=== PATIENT | female | born 1990 | race Caucasian/White ===

== ENCOUNTER 2017-12-09 21:21 | Emergency (ER) | END 2017-12-09 23:55 | disposition home or self-care (01) ==

== ENCOUNTER 2019-02-11 20:56 | Emergency (ER) | payer SELFPAY ==
[~2019-02-11] VITALS: Wt 68.3 kg
[~2019-02-11 20:56] MED LIST: ACET500C5 PO; CETI10CA PO; Claritin; FLUT9.9S NASAL; GUAI473L22 PO; IBUP-1542 PO; ONDA4TAB14 PO; OSEL75CA23 PO; PRED20TA PO; SENN-120 PO; TRAM50TA2 PO
[2019-02-11 21:00] VITALS: Wt 68.3 kg
[2019-02-11] MEDS ORDERED: SODIUM CHLORIDE 0.9% 1L BAG IV* STA (21:19)
[2019-02-11] MEDS ORDERED: KETOROLAC 15 MG INJ IV STA (21:46)
[2019-02-11] MEDS ORDERED: ACETAMINOPHEN 325 MG TAB PO ONE (22:00)
[2019-02-12] MEDS ORDERED: AMOX500C2 PO
--- NOTE | 2019-02-12 00:31 | ERD ---
ER Documentation Chief Complaint Chief Complaint dx'd w bronchitis x3d; worse despite meds: amox, tussin, ibupr, zyrtec. HPI This is a 28-year-old female who is presenting with 3 days of waxing and waning fever, chills, productive cough of clear sputum, chest and nasal congestion with rhinorrhea and feeling generally unwell. The patient was evaluated previously and given prescriptions for amoxicillin, Tessalon, ibuprofen and Zyrtec. Despite treatment, the patient's symptoms persisted, which is what prompted her to come to the emergency department today. The patient has had no headache or vision changes. The patient does not endorse neck or back pain. The patient denies lightheadedness or dizziness. The patient has had no chest pain but she does report mild shortness of breath. The patient denies abdominal pain. The patient denies changes to bowel movements or urination. The patient has had no focal deficits. The patient has had no weakness or numbness or tingling to the face or extremities. ROS All systems reviewed and are negative except as per history of present illness. Medications Home Meds Active Scripts Fluticasone Propionate (Flonase Allergy Relief) 9.9 Ml [place].susp, 1 SPRAY NASAL BID, #1 BOTTLE TO EACH NOSTRIL Prov:APRIL HARP PA-C 10/15/18 Ibuprofen* (Motrin*) 600 Mg Tab, 600 MG PO Q6H PRN for PAIN AND OR ELEVATED TEMP, #30 TAB Prov:EUSEBIO KUHN NP 12/09/17 Cetirizine Hcl* (Zyrtec*) 10 Mg Capsule, 10 MG PO DAILY, #30 TAB.CHEW Prov:EUSEBIO UKHN NP 12/09/17 Guaifenesin-Codeine Phosphate* (Guaifenesin* AC Cough Syrup) 473 Ml Liquid, 10 ML PO Q4H PRN for COUGH, #60 ML Prov:EUSEBIO KUHN NP 12/09/17 Reported Medications Amoxicillin* (Amoxicillin*) 500 Mg Cap, 500 MG PO Q8, #30 CAP 02/12/19 Discontinued Reported Medications [Claritin] No Conflict Check 02/08/16 Discontinued Scripts Prednisone* (Prednisone*) 20 Mg Tab, 60 MG PO DAILY for 5 Days, TAB Prov:APRIL HARP PA-C 10/15/18 Ondansetron (Ondansetron Odt) 4 Mg Tab.rapdis, 4 MG PO Q6H PRN for NAUSEA AND/OR VOMITING, #20 TAB Prov:EUSEBIO KUHN NP 12/09/17 Acetaminophen* (Tylophen*) 500 Mg Capsule, 1 CAP PO Q6H PRN for PAIN AND OR ELEVATED TEMP, #20 CAP Prov:EUSEBIO KUHN [employer] WORK[employer] 12/09/17 Oseltamivir Phosphate* (Tamiflu*) 75 Mg Capsule, 75 MG PO BID for 5 Days, CAP Prov:EUSEBIO KUHN [employer] WORK[employer] 12/09/17 Sennosides* (Senna Lax*) 8.6 Mg Tablet, 1 TAB PO BID PRN for CONSTIPATION for 7 Days, TAB Prov:SHANE RACHEL MD 02/08/16 Tramadol HCl (Tramadol HCl) 50 Mg Tablet, 50 MG PO Q6H PRN for PAIN, #25 TAB Prov:SHANE RACHEL MD 02/08/16 Allergies Allergies: Coded Allergies: No Known Allergy (Unverified , 02/11/19) PMhx/Soc History of Surgery: Yes (appendectomy) Anesthesia Reaction: No Hx Neurological Disorder: No Hx Cardiac Disorders: No Hx Psychiatric Problems: No Hx Miscellaneous Medical Probl: Yes (high triglycerides) Hx Alcohol Use: Yes (occasionally) Hx Substance Use: No Hx Tobacco Use: No Smoking Status: Never smoker FmHx Family History: No diabetes Physical Exam Vitals Vital Signs Date Temp Pulse Resp B/P (MAP) Pulse Ox O2 O2 Flow FiO2 Time Delivery Rate 02/11/19 101.8 110 24 118/82 97 Room Air 23:00 (94) 02/11/19 98.1 22:34 02/11/19 126 39 149/99 98 Room Air 22:27 (116) 02/11/19 102.1 133 22 159/101 96 21:00 (120) Physical Exam Const: No acute distress Head: Atraumatic Eyes: Normal Conjunctiva ENT: Normal External Ears and Mouth. Nasal congestion and rhinorrhea evident. Neck: Full range of motion. No meningismus. Resp: Clear to auscultation bilaterally Cardio: Regular rhythm, tachycardia, no murmurs Abd: Soft, non tender, non distended. Normal bowel sounds Skin: No petechiae or rashes Back: No midline or flank tenderness Ext: No cyanosis, or edema Neur: Awake and alert Psych: Normal Mood and Affect Result Diagram: 02/11/19212302/11/192123 Results 24 hrs Laboratory Tests Test 02/11/19 21:23 02/11/19 21:24 02/11/19 22:11 02/11/19 22:16 POC Venous 1.6 mmol/L Lactate White Blood Count 7.0 10^3/ul Red Blood Count 4.78 10^6/ul Hemoglobin 13.5 g/dl Hematocrit 40.9 % Mean Corpuscular 85.6 fl Volume Mean Corpuscular 28.2 pg Hemoglobin Mean Corpuscular 33.0 g/dl Hemoglobin Concen t Red Cell 12.4 % Distribution Width Platelet Count 204 10^3/UL Mean Platelet 11.8 fl Volume Immature 0.400 % Granulocytes % Neutrophils % 77.2 % Lymphocytes % 12.8 % Monocytes % 8.2 % Eosinophils % 1.0 % Basophils % 0.4 % Nucleated Red 0.0 /100WBC Blood Cells % Immature 0.030 10^3/ul Granulocytes # Neutrophils # 5.4 10^3/ul Lymphocytes # 0.9 10^3/ul Monocytes # 0.6 10^3/ul Eosinophils # 0.1 10^3/ul Basophils # 0.0 10^3/ul Nucleated Red 0.0 10^3/ul Blood Cells # Prothrombin Time 12.9 Sec Prothrombin Time 1.0 Ratio INR International 0.96 Normalized Ratio Activated 33.8 Sec Partial Thrombopl ast Time Sodium Level 140 mmol/L Potassium Level 3.5 mmol/L Chloride Level 103 mmol/L Carbon Dioxide 24 mmol/L Level Anion Gap 13 Blood Urea 7 mg/dl Nitrogen Creatinine 0.69 mg/dl Est Glomerular > 60 mL/min Filtrat Rate mL/min Glucose Level 144 mg/dl Calcium Level 9.1 mg/dl Total Bilirubin 1.0 mg/dl Direct Bilirubin 0.00 mg/dl Indirect 1.0 mg/dl Bilirubin Aspartate Amino 23 IU/L Transf (AST/SGOT) Alanine 18 IU/L Aminotransferase (ALT/SGPT) Alkaline 70 IU/L Phosphatase Troponin I < 0.012 ng/ml Total Protein 8.6 g/dl Albumin 4.6 g/dl Globulin 4.00 g/dl Albumin/Globulin 1.15 Ratio Urine Color HELENA Urine Clarity CLOUDY Urine pH 5.0 Urine Specific 1.027 Otter Urine Ketones NEGATIVE mg/dL Urine Nitrite NEGATIVE mg/dL Urine Bilirubin NEGATIVE mg/dL Urine 2+ mg/dL Urobilinogen Urine Leukocyte TRACE Penny/ul Esterase Urine Microscopic 1 /HPF RBC Urine Microscopic 7 /HPF WBC Urine Squamous MODERATE /HPF Epithelial Cells Urine Bacteria FEW /HPF Urine Mucus MANY /HPF Urine Hemoglobin NEGATIVE mg/dL Urine Glucose NEGATIVE mg/dL Urine Total 1+ mg/dl Protein POC Beta HCG, NEGATIVE Qualitative Test 02/11/19 23:26 Lactic Acid Level 0.9 mmol/L Current Medications Medications Dose Sig/Zachariah Start Time Status Last (Trade) Ordered Route PRN Stop Time Admin Dose Reason Admin Sodium 2,050 ml BOLUS OVER 2 02/11/19 DC 02/11/19 Chloride HOURS STAT 21:19 21:27 (NS) IV* 02/11/19 21:21 Ketorolac 15 mg ONCE STAT 02/11/19 DC 02/11/19 Tromethamine IV 21:46 22:18 (Toradol) 02/11/19 21:48 650 mg ONCE ONCE 02/11/19 DC 02/11/19 Acetaminophen PO 22:00 22:10 (Tylenol 02/11/19 22:01 Tab) Procedures/MDM MDM The patient's presentation warrants further investigation. Previous medical records, if available, were reviewed. LABS The patient's laboratory testing was obtained and reviewed. No emergent treatment was required unless described below. CBC: No E/o systemic infection or severe anemia or thrombocytopenia Chemistry: No E/o severe acidosis or alkalosis or renal failure or diabetic ketoacidosis PT/INR: No E/o significant coagulopathy Lactate: No E/o severe sepsis Troponin: No E/o acute ischemia Urine: Equivocal for infection without clinical evidence concerning for this etiology. No hematuria Tox: No E/o alcohol abuse. No E/o illicit drug use. No E/o salicylate or acetaminophen use. EKG EKG read by me: Rate/Rhythm: Sinus tachycardia at 126 bpm Intervals: Normal [place]: Normal Impression: No evidence of acute ischemia. Sinus tachycardia IMAGING Imaging and Radiology interpretation reviewed. CXR FINDINGS: The heart is not enlarged. Mediastinum is not widened. No hilar masses seen. Lungs are clear of any infiltrates. There is no effusion or pneumothorax. The osseous structures appear normal. IMPRESSION: No evidence for active cardiopulmonary disease. Electronically viewed and signed by .Izaiah Odell MD, on 02/11/2019 22:26 TREATMENT/DISPOSITION The patient's symptoms are most consistent with an upper respiratory infection. The patient has been sick for over 3 days. We are out of the flu season, but I am concerned about a viral syndrome. The patient will require symptomatic treatment. The patient is on amoxicillin already, and she may continue to take this, though I do have higher suspicion for a viral illness over a bacterial illness. Given the patient's fever and tachycardia, a sepsis work-up was performed. The patient does not have any evidence of endorgan damage. The patient has no lactic acidosis or leukocytosis. I have low suspicion for sepsis at this time. The patient's urinalysis is equivocal for infection. In discussion with the enedelia caceres, she denies any urinary symptoms. It is not a clean-catch specimen with squamous epithelium evident. I do not suspect a UTI and I do not feel the patient requires antibiotic treatment for this. The patient was treated with IV fluids, Tylenol and Toradol. DISCHARGE Upon reevaluation of the patient, symptoms have improved. No emergent diagnoses were identified. At this time, I feel that the patient stable for discharge. The patient was instructed to follow-up with a primary care physician in 1-3 days. The patient will be given strict precautions with which to return to the emergency department. Prescriptions: Ibuprofen, Tessalon Perles The patient's blood pressure was elevated at greater than 120/80 while in the emergency department. The patient was otherwise stable with no evidence of hypertensive urgency or emergency. The patient does not require admission for blood pressure control. I have discussed with the patient the risks of hypertension. I have instructed the patient to return to the ER for any new or worsening symptoms including chest pain, shortness of breath, headache, blurred vision, confusion, nausea, vomiting or LOC. I have advised the patient to follow up with the primary care physician for outpatient monitoring and treatment for hypertension in 1-3 days. Disclaimer: Inadvertent spelling and grammatical errors are likely due to EHR/dictation software use and do not reflect on the overall quality of patient care. Note that the electronic time recorded on this note does not necessarily reflect the actual time of the patient encounter. Departure Diagnosis: Primary Impression: Upper respiratory infection URI type: unspecified URI Qualified Codes: J06.9 - Acute upper respiratory infection, unspecified Additional Impressions: Nasal congestion Cough Fever Fever type: unspecified Qualified Codes: R50.9 - Fever, unspecified Tachycardia Condition: Stable Patient Instructions: Preventing Common Respiratory Infections, Cough, Chronic, Uncertain Cause, (Adult), Fever Control (Adult) Additional Instructions: Thank you for for coming to [facility] for your care today. Please ask your nurse or provider if you have questions about your care today and do not leave until all your questions have been answered. Please use any medications given as directed and follow-up with your doctor (or the doctor you were referred to) in the next 1-3 days. If you do not have a primary care doctor you may follow up at the [facility] or [facility] (listed below). You may also use motrin and tylenol as needed for fever and/or pain unless instructed otherwise by your provider or nurse. Indications for more urgent follow-up have been discussed, but you may return to the Emergency Department at ANY time for any worrisome or worsening symptoms. If you have abdominal pain, please know that no test or exam you received is perfect and you should follow up within 8 hours for continued pain. If you had any imaging studies today, such as an X-Ray or CT Scan, these studies will be reviewed later by a radiologist. You will be called if there are important findings that were not identified today, so make sure the contact information you provided at registration is correct. If you received any narcotic pain control medicine today, such as Vicodin, Morphine or Dilaudid, your coordination and judgment may be affected for a number of hours. Please do not drive or operate heavy machinery, and you may want someone to assist you at home. If you were given a prescription for narcot ic medication, be aware that it is very addictive- use sparingly and only if necessary. PLEASE SEEK FURTHER EVALUATION AND MANAGEMENT AT YOUR DOCTORS OFFICE WITHIN THE NEXT 1-3 DAYS. IT IS YOUR RESPONSIBILITY TO MAKE AN APPOINTMENT FOR FOLOW-UP CARE. IF YOU HAVE A PRIMARY DOCTOR, PLEASE CALL THEIR OFFICE TO SCHEDULE AN APPOINTMENT FOR FOLLOW UP. IF YOU DO NOT HAVE A PRIMARY DOCTOR YOU CAN CALL OUR PHYSICIAN REFERRAL HOTLINE AT IF YOU CAN NOT AFFORD TO SEE A PHYSICIAN YOU CAN CHOSE FROM THE FOLLOWING COMMUNITY CLINICS: [facility] [address] [facility] [address] [facility]. [facility] [address] [facility] [address] [facility] [address] [facility]. [facility] [address] JYOTI MONTAÑO MD February 12, 2019 00:31
[2019-02-12] MEDS ORDERED: BENZ-6 PO (00:33)
[2019-02-12] MEDS ORDERED: IBUP-1542 PO (00:33)
[2019-02-12 01:10] VITALS: BP 122/89; PULSE 110; RESP 16
== END 2019-02-12 01:13 | disposition home or self-care (01) ==
LOC: E/R 20:56
DX: J06.9 Acute upper respiratory infection, unspecified (principal); R00.0 Tachycardia, unspecified; R40.2142 Coma scale, eyes open, spontaneous, at arrival to emergency department; R40.2362 Coma scale, best motor response, obeys commands, at arrival to emergency department; R40.2252 Coma scale, best verbal response, oriented, at arrival to emergency department
CPT/HCPCS: 36415; 71045; 80053; 81001; 81025; 83605; 84484; 85025; 85610; 85730; 87040; 87086; 93005; 96374; 99285; J1885; J7030

== ENCOUNTER 2019-04-18 22:14 | Emergency (ER) | payer SELFPAY ==
[~2019-04-18] VITALS: Ht 149.9 cm; Wt 66.2 kg
[~2019-04-18 22:14] MED LIST changes: -ACET500C5 PO; +ALBU8.5H8 INH; +AMOX500C2 PO; +BENZ-6 PO; -Claritin; +GUAI120S25 PO; +MED4DP PO; -ONDA4TAB14 PO; -OSEL75CA23 PO; -PRED20TA PO; -SENN-120 PO; -TRAM50TA2 PO
[2019-04-18 22:16] VITALS: Ht 149.9 cm; Wt 66.2 kg
[2019-04-18] MEDS ORDERED: METHYLPREDNISOLONE 125 MG INJ IM STA (22:40)
[2019-04-18] MEDS ORDERED: ALBUTEROL 0.083% (NEB) 2.5 MG/3 ML AMP NEB STA (22:40)
[2019-04-18] MEDS ORDERED: IPRATROPIUM (NEB) 0.5 MG/2.5 ML AMP NEB STA (22:40)
[2019-04-18] MEDS ORDERED: ONDANSETRON 4 MG INJ IM STA (22:43)
--- NOTE | 2019-04-18 22:43 | ERD ---
ER Documentation Chief Complaint Chief Complaint Cough since this morning and SOB x 2 hours HPI Patient is a 28 years old female who denies all past medical history presenting to the clinic for cough, chest congestion, difficulty breathing, coryza, fever, chills, body aches, weakness since today morning. Patient reports 5 episodes of NBNB episodes between p.m. and 9 PM that has resolved. Patient denies nausea, chest pain, throat pain, ear pain, abdominal pain. Patient denies take any OTC medication. ROS All systems reviewed and are negative except as per history of present illness. Medications Home Meds Active Scripts Benzonatate* (Tessalon Perle*) 100 Mg Capsule, 100 MG PO Q8H PRN for COUGH, #10 CAP Prov:JYOTI DE JESUS MD 02/12/19 Ibuprofen* (Motrin*) 600 Mg Tab, 600 MG PO Q6H PRN for PAIN AND OR ELEVATED TEMP, #30 TAB Prov:JYOTI DE JESUS MD 02/12/19 Fluticasone Propionate (Flonase Allergy Relief) 9.9 Ml [place].susp, 1 SPRAY NASAL BID, #1 BOTTLE TO EACH NOSTRIL Prov:APRIL HARP PA-C 10/15/18 Ibuprofen* (Motrin*) 600 Mg Tab, 600 MG PO Q6H PRN for PAIN AND OR ELEVATED TEMP, #30 TAB Prov:EUSEBIO KUHN NP 12/09/17 Cetirizine Hcl* (Zyrtec*) 10 Mg Capsule, 10 MG PO DAILY, #30 TAB.CHEW Prov:EUSEBIO KUHN NP 12/09/17 Guaifenesin-Codeine Phosphate* (Guaifenesin* AC Cough Syrup) 473 Ml Liquid, 10 ML PO Q4H PRN for COUGH, #60 ML Prov:EUSEBIO KUHN NP 12/09/17 Reported Medications Amoxicillin* (Amoxicillin*) 500 Mg Cap, 500 MG PO Q8, #30 CAP 02/12/19 Allergies Allergies: Coded Allergies: No Known Allergy (Unverified , 02/11/19) PMhx/Soc Medical and Surgical Hx: pt denies Medical Hx History of Surgery: Yes (appendectomy) Anesthesia Reaction: No Hx Neurological Disorder: No Hx Respiratory Disorders: No Hx Cardiac Disorders: No Hx Psychiatric Problems: No Hx Miscellaneous Medical Probl: No Hx Alcohol Use: Yes (occasionally) Hx Substance Use: No Hx Tobacco Use: No Smoking Status: Never smoker FmHx Family History: No diabetes, No coronary disease, No other Physical Exam Vitals Vital Signs Date Temp Pulse Resp B/P (MAP) Pulse Ox O2 O2 Flow FiO2 Time Delivery Rate 04/18/19 116 25 96 21 22:55 04/18/19 99.9 100 20 166/99 94 22:16 (121) Physical Exam Const: No acute distress Head: Atraumatic ENT: Normal External Ears, Nose and Mouth. Unremarkable oropharyngeal exam (no edema, no erythema, no lesion, no exudates). Resp: Wheezing noted in bilateral lower lobes. No rales, rhonchi. Cardio: Regular rate and rhythm, no murmurs Psych: Normal Mood and Affect Results 24 hrs Current Medications Medications Dose Sig/Zachariah Start Time Status Last (Trade) Ordered Route PRN Stop Time Admin Dose Reason Admin Albuterol 2.5 mg ONCE STAT 04/18/19 DC 04/18/19 (Proventil NEB 22:40 04/18/19 22:52 0.083% (Neb)) 22:42 Ipratropium 0.5 mg ONCE STAT 04/18/19 DC 04/18/19 [place] NEB 22:40 04/18/19 22:52 (Atrovent 22:42 0.02% (Neb)) 125 mg ONCE STAT 04/18/19 DC 04/18/19 Methylprednis IM 22:40 04/18/19 23:02 olone Sodium 22:42 Succinate (Solu-Medrol) Ondansetron 4 mg ONCE STAT 04/18/19 DC 04/18/19 HCl (Zofran IM 22:43 04/18/19 23:02 Inj) 22:44 Procedures/MDM Patient was seen and evaluated for cough, difficulty breathing. Nebulizer treatment administered in ED with significant improvement since symptoms. Repeat pulmonary exam post ablation revealed no wheezing. IV Zofran and IV Solu-Medrol administered in ED with significant improvement of symptoms. Chest x-ray is unremarkable. Patient stable ready for discharge. Follow-up with PCP. [facility] Patient was advised that she experienced onset asthma should follow-up with her PCP for further evaluation. Requested ibuprofen RX for headaches. Departure Diagnosis: Primary Impression: Shortness of breath Condition: Stable Patient Instructions: Cough, Chronic, Uncertain Cause, (Adult) Referrals: [facility] Additional Instructions: Patient advised to return to the ED immediately for new or worsening symptoms. Patient advised to follow up with primary care provider in the next 24-48 hours. Patient verbalized understanding and agrees with treatment plan and course of action. If patient has no primary care they may follow up with [facility] [address] [place] [id number] or [facility] [id number] [place] [id number] or [facility] [address] [place] [address] THEE LOZADA PA-C Apr 18, 2019 22:43
[2019-04-19 00:25] VITALS: BP 133/90; PULSE 125; RESP 16
== END 2019-04-19 00:24 | disposition home or self-care (01) ==
LOC: FTE 22:14
DX: R06.02 Shortness of breath (principal)
CPT/HCPCS: 71045; 94664; 96372; 99284; J2405; J2930